=== PATIENT | female | born 1975 | race Two or more races ===

== ENCOUNTER 2016-08-25 09:21 | Emergency (ER) | payer MEDICAID, OTHER ==
[~2016-08-25] VITALS: Ht 157.5 cm; Wt 55.0 kg
[~2016-08-25 09:21] MED LIST: CYCL-319 PO; FAMO-18 PO; IBUP-1542 PO; TRAM50TA2 PO
[2016-08-25 09:35] VITALS: Ht 157.5 cm; Wt 55.0 kg
[2016-08-25] MEDS ORDERED: LORAZEPAM 0.5 MG TAB PO ONE (11:00)
[2016-08-25] MEDS ORDERED: IBUPROFEN 200 MG TAB PO ONE (11:00)
[2016-08-25 11:21] LABS: URINE BLOOD (Dip) POC Negative (NEGATIVE)
[2016-08-25] MEDS ORDERED: IBUP400T22 PO (13:04)
[2016-08-25] MEDS ORDERED: ALPR0.25 PO (13:04)
--- NOTE | 2016-08-25 14:39 | ERD ---
ER Documentation Chief Complaint Date/Time DATE: 08/25/16 TIME: 14:27 Chief Complaint PT with neck pain and R neck swelling X 6 days. HPI This is a 40-year-old female presenting to the emergency department for right- sided neck pain 3 days. Patient reports having intermittent difficulty swallowing and intermittent headache. Patient denies this being the worst headache she is ever had. Currently, patient denies difficulty swallowing. No shortness of breath or difficulty breathing. No chest pain. Patient is talking in complete sentences. Patient states she had a previous upper back injury 6 years ago while lifting a heavy object and since then she has had intermittent exacerbations of pain to neck and upper back. Patient has not tried any medications for this. Patient states she feels very anxious and nervous. Patient seen crying and states she is very nervous. Patient and patient's believe this contributes to her pain. Has full mobility to neck and upper extremities. Denies numbness or tingling to extremities. No loss of sensation. ROS All systems reviewed and are negative except as per history of present illness. Medications Home Meds Active Scripts Ibuprofen* (Motrin*) 400 Mg Tab, 400 MG PO Q6, #15 TAB Prov:SANDEE RICO NP 08/25/16 Alprazolam* (Xanax*) 0.25 Mg Tablet, 0.25 MG PO Q8H Y for ANXIETY, #10 TAB Prov:SANDEE RICO NP 08/25/16 Famotidine* (Pepcid*) 20 Mg Tablet, 20 MG PO BID for 14 Days, TAB Prov:VIJAY ALBA PA-C 12/19/15 Cyclobenzaprine Hcl* (Cyclobenzaprine Hcl*) 10 Mg Tablet, 10 MG PO BID, #10 TAB Prov:VIJAY ALBA PA-C 12/19/15 Ibuprofen* (Motrin*) 600 Mg Tab, 600 MG PO Q6, #30 TAB Prov:VIJAY ALBA PA-C 12/19/15 Tramadol HCl (Tramadol HCl) 50 Mg Tablet, 50 MG PO Q4 Y for PAIN, #20 TAB Prov:VIJAY ALBAC 12/19/15 Allergies Allergies: Coded Allergies: piperacillin sodium (Verified Allergy, Intermediate, RASH, 03/26/14) HAD SOLUMEDROL AND BENADRYL IN ED POST TX WITH ZOSYN tazobactam sodium (Verified Allergy, Intermediate, RASH, 03/26/14) HAD SOLUMEDROL AND BENADRYL IN ED POST TX WITH ZOSYN PMhx/Soc History of Surgery: Yes (X3 C-SEC, X2 ECTOPIC) Anesthesia Reaction: No Hx Neurological Disorder: No Hx Respiratory Disorders: No Hx Cardiac Disorders: No Hx Psychiatric Problems: No Hx Miscellaneous Medical Probl: No Hx Alcohol Use: No Hx Substance Use: No Hx Tobacco Use: No Smoking Status: Never smoker Physical Exam Vitals Vital Signs Date Time Temp Pulse Resp B/P Pulse Ox O2 Delivery O2 Flow Rate FiO2 08/25/16 09:35 99.0 84 14 130/83 99 Physical Exam Const: Alert, anxious Head: Atraumatic Eyes: Normal Conjunctiva ENT: Normal External Ears, Nose and Mouth. No erythema or exudate posterior pharynx. No peritonsillar abscess. TMs normal bilaterally. Neck: Full range of motion..~ No meningismus. No lymphadenopathy. No masses or swelling. No carotid bruit. Resp: Clear to auscultation bilaterally. No wheezing, rhonchi or crackles. Cardio: Regular rate and rhythm, no murmurs Abd: Soft, non tender, non distended. Normal bowel sounds Skin: No petechiae or rashes Back: No midline or flank tenderness Ext: No cyanosis, or edema Neur: Awake and alert Psych: Normal Mood and Affect Results 24 hrs Laboratory Tests Test 08/25/16 11:23 Bedside Urine pH (LAB) 5.5 Bedside Urine Protein (LAB) Negative Bedside Urine Glucose (UA) Negative Bedside Urine Ketones (LAB) Negative Bedside Urine Blood Negative Bedside Urine Nitrite (LAB) Negative Bedside Urine Leukocyte Esterase (L Negative Current Medications Medications (Trade) Dose Ordered Sig/Manisha Route PRN Reason Start Time Stop Time Status Last Admin Dose Admin Lorazepam (Ativan) 0.5 mg ONCE ONCE PO 08/25/16 11:00 08/25/16 11:01 DC 08/25/16 11:16 Ibuprofen (Motrin) 400 mg ONCE ONCE PO 08/25/16 11:00 08/25/16 11:01 DC 08/25/16 11:15 Procedures/MDM MDM: 40-year-old female presents the emergency department for right lateral neck pain 3 days. Patient has intermittent difficulty swallowing with headache. P.o. challenge successful. No choking or difficulty swallowing in ED. Denies this being the worst headache she is ever had. No visual deficits. No recent head or neck injury. Patient has had a previous upper back injury 6 years ago and has exacerbations of pain intermittently. Patient is very nervous on the ED and at times crying due to her anxiety. Patient given Ativan and ibuprofen. Upon reassessment, patient is calm and smiling and states pain is much better. Patient has full mobility to neck and upper extremities. No neurological deficits. Remains neurovascularly intact. No lesions, mass or abscess seen. ENT and lung exam are unremarkable. Neuro exam unremarkable. Differential diagnosis includes but not limited to musculoskeletal pain, pharyngitis, radiculopathy, spondylolisthesis , myofascial pain syndrome and anxiety., Low suspicion for CVA, TIA, abscess, cellulitis or carotid bruit. Patient is appropriate for outpatient management will be given prescription for Xanax and ibuprofen. Instructed patient to follow-up with primary care provider in the next 2-3 days for reassessment and additional management. Return to ED for any high fever, chest pain, difficulty breathing, shortness breath, wheezing, vomiting, diarrhea, abdominal pain or any new or worsening symptoms. Patient and patient's significant other verbalize understanding. All questions answered at discharge. Portuguese translation use during this encounter. Departure Diagnosis: Primary Impression: Neck pain Additional Impression: Anxiety Condition: Stable Patient Instructions: Your Body's Response to Anxiety, Understanding Anxiety Disorders Ref[facility]: [facility] Usted se yadav hecho un examen mdico de control que le indica que no est en ellie condicin que requiera tratamiento urgente en el Departamento de Emergencia. Un estudio ms profundo y el tratamiento de pedroza condicin pueden esperar sin ningn riesgo hasta que usted sea atendida/o en el consultorio de pedroza mdico o ellie cl eliana. Es responsabilidad suya arreglar ellie juice para el seguimiento del maximino. MANEJO DE CONDICIONES NO URGENTES EN EL FUTURO 1) Si usted tiene un mdico de atencin primaria: Usted debera llamar a pedroza mdico de atencin primaria antes de venir al departamento de emergencia. Despus de las horas de consultorio, pedroza doctor o pedroza asociado/a est disponible por telfono. El mdico o enfermero de rich en el servicio telefnico puede asesorarle por ry medio para atender el problema, o maximino contrario se puede programar ellie juice. 2) Si usted no tiene un mdico de atencin primaria: Llame al mdico o clnica de referencia que aparece abajo hang las horas de consultorio para hacer ellie juice para que le vean. CLINICAS: [facility] [phone] [facility] [phone] [address] [facility] [phone] [address] [facility]. [place] [id number] [phone] [facility] [phone] [address] [facility]. [phone] [facility] () Usted se yadav hecho un examen mdico de control que le indica que no est en ellie condicin que requiera tratamiento urgente en el Departamento de Emergencia. Un estudio ms profundo y el tratamiento de pedroza condicin pueden esperar sin ningn riesgo hasta que usted sea atendida/o en el consultorio de pedroza mdico o ellie cl eliana. Es responsabilidad suya arreglar ellie juice para el seguimiento del maximino. MANEJO DE CONDICIONES NO URGENTES EN EL FUTURO 1) Si usted tiene un mdico de atencin primaria: Usted debera llamar a pedroza mdico de atencin primaria antes de venir al departamento de emergencia. Despus de las horas de consultorio, pedroza doctor o pedroza asociado/a est disponible por telfono. El mdico o enfermero de rich en el servicio telefnico puede asesorarle por ry medio para atender el problema, o maximino contrario se puede programar ellie juice. 2) Si usted no tiene un mdico de atencin primaria: Llame al mdico o condado institucions de referencia que aparece abajo hang las horas de consultorio para hacer ellie juice para que le vean. SI USTED NO PUEDE PAGAR PARA BRITTANY UN MEDICO puede ir a: [facility] [address] [place] [address] [facility] [address] [place] [address] [facility] [address] [place] [address] PARA [facility] [address] [place], [place] [id number] Additional Instructions: Llame al doctor MAANA y jeremias ellie JUICE PARA DENTRO DE 2-3 FLOYD.Dgale a la secretaria que nosotros le instruimos hacer esta juice.Avise o llame si pedrzoa condicin se empeora antes de la juice. Regresa aqui si peor o no mejor. Regresar a ED por fiebre radha, dolor en el pecho, dificultad para respirar, respiracin entrecortada, sibilancias, vmitos, diarrea, dolor abdominal o cualquier sntoma nuevo o que empeora. SANDEE RICO NP August 25, 2016 14:39
== END 2016-08-25 13:12 | disposition home or self-care (01) ==
LOC: FTE 09:21
DX: M54.2 Cervicalgia (principal); F41.9 Anxiety disorder, unspecified
CPT/HCPCS: 81003; Z7502; Z7610; 99283

== ENCOUNTER 2017-08-02 13:27 | Emergency (ER) | END 2017-08-02 15:06 | disposition home or self-care (01) ==